=== PATIENT | female | born 1985 | race African-American/Black ===

== ENCOUNTER 2019-07-31 17:39 | Emergency (ER) | payer OTHER ==
[2019-07-31] MEDS ORDERED: TETANUS & DIPHTHERIA TOX,ADULT 0.5 ML VIAL ONE (18:01)
--- NOTE | 2019-07-31 18:54 | ER ---
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 Transition of care: patient was not received from another setting of care. Onset of symptoms was July 31, 2019. Risk Assessment: Do you want to hurt yourself or someone else? Patient reports no desire to harm self or others. Initial Sepsis Screen: Does the patient meet any 2 criteria? No. Patient's initial sepsis screen is negative. Does the patient have a suspected source of infection? No. Patient's initial sepsis screen is negative. Care prior to arrival: None. 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 - Social history:: Smoking status: Patient/guardian denies using tobacco. - Ebola Screening: : No symptoms or risks identified at this time. Screenin:53 Abuse screen: Denies threats or abuse. Nutritional screening: No deficits noted. tw2 Tuberculosis screening: No symptoms or risk factors identified. Fall Risk None identified. Assessment: 17:55 General: Appears in no apparent distress. comfortable, Behavior is calm, cooperative. em Pain: Complains of pain in left thumbnail Pain currently is 3 out of 10 on a pain scale. Neuro: Level of Consciousness is awake, alert, obeys commands, Oriented to person, place, time, situation, Appropriate for age Moves all extremities. Cardiovascular: Capillary refill < 3 seconds Patient's skin is warm and dry. Respiratory: Airway is patent Respiratory effort is even, unlabored, Respiratory pattern is regular, symmetrical. Derm: Skin is intact, is healthy with good turgor, Skin is pink, warm \\T\\ dry. Musculoskeletal: Capillary refill < 3 seconds, Range of motion: intact in all extremities. Injury Description: Laceration sustained to left thumbnail is clean, superficial, 0.5 to 2.5 cm long, not bleeding, was sustained less than 30 minutes ago. no active bleeding noted at this time. Vital Signs: 17:50 BP 119 / 83; Pulse 88; Resp 16 S; Temp 98.4(O); Pulse Ox 99% on R/A; Weight 85.28 kg aa5 (R); Height 5 ft. 6 in. (167.64 cm) (R); Pain 3/10; 17:50 Body Mass Index 30.34 (85.28 kg, 167.64 cm) aa5 ED Course: 17:42 Patient arrived in ED. rg4 17:48 Arm band placed on. aa5 17:49 Triage completed. aa5 17:52 Ruben Cortez PA is PHCP. cp 17:52 Ruben Montez MD is Attending Physician. cp 17:52 Damián Reilly PA is PHCP. [facility] 17:54 Bed in low position. Call light in reach. tw2 17:55 Andrea Pink LVN is Primary Nurse. em 19:00 No provider procedures requiring assistance completed. Patient did not have IV access em during this emergency room visit. 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 Exp: em 03/16/2021. Lot #: [id number]. } Route: IM; Site: left deltoid; 18:49 Follow up: Response: No adverse reaction em Outcome: 18:53 Discharge ordered by MD. cp 19:00 Discharged to home ambulatory. em 19:00 Condition: good 19:00 Discharge instructions given to patient, Instructed on discharge instructions, follow up and referral plans. medication usage, wound care, Demonstrated understanding of instructions, follow-up care, medications, wound care, Prescriptions given X 1. 19:01 Patient left the ED. em Signatures: Damián Reilly PA PA Andrea Aleman LVN LVN em Karen Gunderson RN RN aa5 Ruben Cortez PA PA cp Wise, Tara, RN RN tw2 Brenda Israel rg4
--- NOTE | 2019-07-31 18:55 | EDPHYS ---
Physician Documentation [facility] Name: Andrez Duran Age: 34 yrs Sex: Female : 1985 Arrival Date: 07/31/2019 Time: 17:42 Bed 20 Private MD: JOSE D Physician Ruben Montez HPI: 07/31 18:00 This 34 yrs old Black Female presents to ER via Ambulatory with complaints of cp Laceration To Finger. 18:00 The patient or guardian reports injury, a laceration, irregular. cp 18:00 The complaints affect the dorsal side distal phalanx left thumb. Context: The problem cp was sustained at work, resulted from cutting food with knife. Onset: The symptoms/episode began/occurred just prior to arrival. Associated signs and symptoms: Pertinent negatives: cyanosis distally, decreased sensation distally. 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 - Social history:: Smoking status: Patient/guardian denies using tobacco. - Ebola Screening: : No symptoms or risks identified at this time. ROS: 18:05 Skin: Positive for laceration(s), of the dorsal aspect distal phalanx left thumb. cp 18:05 Constitutional: Negative for body aches, chills, fever. cp 18:05 Neuro: Negative for numbness. 18:05 All other systems are negative. Exam: 18:10 Skin: injury, laceration(s), the wound is approximately 1 cm(s), of the dorsal aspect cp distal phalanx left thumb, that can be described as clean, irregular, without bleeding, through nail to nail bed. Vital Signs: 17:50 BP 119 / 83; Pulse 88; Resp 16 S; Temp 98.4(O); Pulse Ox 99% on R/A; Weight 85.28 kg aa5 (R); Height 5 ft. 6 in. (167.64 cm) (R); Pain 3/10; 17:50 Body Mass Index 30.34 (85.28 kg, 167.64 cm) aa5 MDM: 17:53 Patient medically screened. [facility] 18:52 Data reviewed: vital signs, nurses notes, radiologic studies, plain films. cp 18:52 Test interpretation: by ED physician or midlevel provider: plain radiologic studies, cp xrays left thumb negative for fracture. Counseling: I had a detailed discussion with the patient and/or guardian regarding: the historical points, exam findings, and any diagnostic results supporting the discharge/admit diagnosis, radiology results, to return to the emergency department if symptoms worsen or persist or if there are any questions or concerns that arise at home. ED course: Wound cleaned and dressed. Will discharge to home for continued monitoring. 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 Exp: em 03/16/2021. Lot #: [id number]. } Route: IM; Site: left deltoid; 18:49 Follow up: Response: No adverse reaction em Disposition: 19:05 Chart complete. cp Disposition: 07/31/19 18:53 Discharged to Home. Impression: Laceration without foreign body of thumb with damage to nail - left. - Condition is Stable. - Discharge Instructions: Laceration Care, Adult, Nonsutured Laceration Care. - Prescriptions for Keflex 500 mg Oral Capsule - take 1 capsule by ORAL route every 8 hours for 10 days; 30 capsule. - Medication Reconciliation Form, Thank You Letter, Antibiotic Education, Prescription Opioid Use, Work release form form. - Follow up: Private Physician; When: 48 Hours; Reason: Worsening of condition. - Problem is new. - Symptoms have improved. Addendum: 08/02/2019 08:39 Co-signature as Attending Physician, Ruben Montez MD I agree with the assessment and c matthews plan of care. Signatures: Dispatcher [employer] Ruben Falcon MD MD cha Munoz, Edgar, PLEATER PLEATER Karen Phillips, COLTEN RN aa5 Ruben Cortez PA PA cp Corrections: (The following items were deleted from the chart) 07/31 19:01 18:53 07/31/2019 18:53 Discharged to Home. Impression: Laceration without foreign body em of thumb with damage to nail - left. Condition is Stable. Forms are Work release form, Medication Reconciliation Form, Thank You Letter, Antibiotic Education, Prescription Opioid Use. Follow up: Private Physician; When: 48 Hours; Reason: Worsening of condition. Problem is new. Symptoms have improved. cp
[2019-07-31 19:06] VITALS: BP 119/83; TEMP 98.4; O2SAT 99
--- NOTE | 2019-07-31 19:14 | RAD REPORT ---
EXAM DESCRIPTION: RAD -Hand Left 3 View - 07/31/2019 7:05 pm CLINICAL HISTORY: Left hand pain status post injury FINDINGS: No fracture or dislocation is seen. A radiopaque foreign body is not seen
== END 2019-07-31 19:01 | disposition home or self-care (01) ==
LOC: ER 17:39
DX: S61.112A Laceration without foreign body of left thumb with damage to nail, initial encounter (principal); I10 Essential (primary) hypertension; W26.0XXA Contact with knife, initial encounter; Y93.89 Activity, other specified; Y92.89 Other specified places as the place of occurrence of the external cause; Y99.8 Other external cause status; Z23 Encounter for immunization; Z88.1 Allergy status to other antibiotic agents; Z88.8 Allergy status to other drugs, medicaments and biological substances
CPT/HCPCS: 90471; 90714; 99283